=== PATIENT | male | born 1995 | race Two or more races ===

== ENCOUNTER → 2016-11-21 | Outpatient (CLI) | payer BC ==
--- NOTE | 2016-11-21 16:23 | RADRPT ---
PROCEDURE: Left knee radiographs. CLINICAL INDICATION: Left knee pain. TECHNIQUE: Four views. Weight bearing. Frontal, lateral, oblique, and patellar view. COMPARISON: No prior studies are available for comparison. FINDINGS: There is no fracture or dislocation. The soft tissues are normal. Articular surfaces are intact. There is no lytic or blastic lesion. There is no radiopaque foreign body. IMPRESSION: 1. Normal images of the left knee. RPTAT: QQ .Nathan Wiseman MD, MD Date Time Electronically viewed and signed by .Nathan Wiseman MD, MD on 11/21/2016 16:23 .R/
== END | disposition home or self-care (01) ==
LOC: HKI 10:30
PROVIDERS: ATTEND Orthopaedic Surgery
DX: M76.899 Other specified enthesopathies of unspecified lower limb, excluding foot (principal); M25.562 Pain in left knee
CPT/HCPCS: 73564; Z7500; G0463